=== PATIENT | male | born 1980 | race Caucasian/White ===

== ENCOUNTER 2016-09-29 22:40 | Inpatient (IN) | payer SELFPAY ==
[~2016-09-29] VITALS: Ht 172.7 cm; Wt 81.4 kg
[~2016-09-29 22:40] MED LIST: METH4TAB27 PO
--- OUTSIDE RECORDS SUMMARY | 2016-09-29 22:45 | XMS REPORT | Continuity of Care Document ---
Author Author [facility] Address Unknown Phone Unavailable Support Name Relationship Address Phone MILES WARE MD Caregiver [address] [place] [address] Insurance Providers Payer Name Policy Number Subscriber Name Relationship Self Pay Mary Ferrer 18 Self / Same As Patient Advance Directives Directive Response Recorded Date/Time Advanced Directives No 04/27/16 3:04pm Chief Complaint and Reason for Visit Chief Complaint Skin Condition Reason for Visit [id number] Problems Active Problems Medical Problem Onset Date Status Poison kim Unknown Acute Medications Current Home Medications Medication Dose Units Route Directions Days/Qty Instructions Start Date Methylprednisolone 21 Tab/Pkt 21 Tab ORAL Daily 1 04/27/16 Social History Query Response Start Date Stop Date Smoking Status Unknown, if ever smoked Hospital Discharge Instructions No hospital discharge instructions. Plan of Care Discharge Date 04/27/16 3:40pm Disposition 01 HOME OR SELF-CARE Condition at Discharge Stable Instructions/Education Provided Poison Kim (ED) Prescriptions See Medication Section Additional Instructions/Education Medrol dose pack - take as directed Benadryl over the counter - 50 mg every 6 hours as needed for itching. Generic is fine Return if symptoms worsen Some of your test results may not be complete prior to your leaving the Emergency Department. The Emergency Department is not authorized to give test results over the phone. Please contact the doctor's office listed in this packet of information for your final results. Follow up with your primary care physician or return to the Emergency Department for worsening or worrisome symptoms. * Emergency Department phone number: [phone], x [phone]* MEDICAL RECORD If you need copies of your X-rays, call [phone]. If you need copies of your medical record, including lab results, a signed authorization for release of records will be required. A telephone call for release of Health Information is not allowed. BILLING Billing can sometimes be confusing and frustrating. To help avoid confusion in the future, please take a moment to acquaint yourself with the billing parties for services. SERVICE BILLING DEMOCRAT Emergency Room Services [facility] Physician Services [facility] X[facility] Patients will receive bills for services from the appropriate provider. If you have any questions about your [facility] bill, our staff will be happy to assist you. Please call [phone], and ask for the billing department. THANK YOU for choosing [facility] as your emergency care provider! Care Plan and Goals ~~Discharge Care Plan~~ Problem: Rash/hives Goal: Decreased redness, itching, and blotches. Instructions: Take medication(s) as directed. Keep a log of medication times and dosages to avoid over or under dosage. Avoid triggers that cause your rash or hives. Functional Status No functional status results. Allergies, Adverse Reactions, Alerts Allergen Type Severity Reaction Status Last Updated Sulfa (Sulfonamide Antibiotics) Allergy Unknown Active 04/27/16 Immunizations No immunization records. Vital Signs Acute Vital Signs Vital Response Date/Time Temperature (Fahrenheit) 96.4 04/27/2016 3:34pm Pulse 75 bpm 04/27/2016 3:34pm Respirations 20 04/27/2016 3:34pm Height 5 ft 8 in Weight 185 lb Body Mass Index 28.0 kg/m^2 Results No known relevant diagnostic tests, laboratory data and/or discharge summary. Procedures No known history of procedures. Encounters Encounter Location Arrival/Admit Date Discharge/Depart Date Attending Provider Departed Emergency Room [facility] 04/27/16 2:58pm 04/27/16 3:40pm MILES WARE MD Recent Diagnosis
[2016-09-29 23:09] LABS: MEAN CORPUSCULAR HGB CONC 35.1 g/dL (31.0-37.0); MEAN CORPUSCULAR VOLUME 93 FL (80-100); PLATELET COUNT 178 10^3uL (150-450); WHITE BLOOD COUNT 7.14 10^3uL (4.0-11.0)
[2016-09-29 23:16] LABS: ALBUMIN 4.4 g/dL (3.4-5.0); ALKALINE PHOSPHATASE 68 U/L (38-126); ANION GAP 18.9 MEQ/L (3-15); BUN/CREATININE RATIO 16 (10-20); CALCULATED IONIZED CALCIUM 3.8 mg/dL (3.8-4.6); TOTAL PROTEIN 7.9 g/dL (6.4-8.5)
[2016-09-29 23:19] LABS: MEAN CORPUSCULAR HEMOGLOBIN 32.5 PG (26.0-34.0)
--- NOTE | 2016-09-29 23:22 | NUR ---
THIS RN SPOKE WITH POISON CONTROL AT THIS TIME REGARDING OVERDOSE. STATUS UPDATE PROVIDED. RECEIVED RECOMMENDATION TO RUN IV FLUIDS, REDRAW TYLENOL LEVEL AT 0000 AND MONITOR VITALS. RECOMMENDATIONS RELAYED TO DR. LEMUS AT THIS TIME.
--- NOTE | 2016-09-29 23:25 | NUR ---
RECEIVED CRITICAL VALUE FOR TYLENOL - 239. GIVEN TO DR. LEMUS AT THIS TIME.
--- NOTE | 2016-09-29 23:25 | NUR ---
fFriends here with patient, unable to get any information from patient d/t altered mental state. Patient's friends believes he has been depressed, has been treated for depression with Latuda but hasn't been taking this for a while. I asked the friend if they had any idea what might of caused him to do this, to want to harm himself? She stated, "The only thing I can think of is that he has been trying to get back to [place], friends are suppose to send him money for a ticket but still haven't.
[2016-09-29 23:56] LABS: SEGMENTED NEUTROPHILS % 39 % (51-67)
[2016-09-29 23:57] LABS: BAND NEUTROPHILS % 0 % (0-6); EOSINOPHILS % 4 % (0-4); LYMPHOCYTES # 3.6 #; MONOCYTES # 0.4 #; MONOCYTES % 6 % (3-11); RBC MORPH NORMAL (NORMAL); TOTAL CELLS COUNTED 100
[2016-09-30] VITALS (18 sets, daily range): BP systolic 113–159; BP diastolic 65–91
[2016-09-30] MEDS: ACETYLCYSTEINE PO ONE ×2 (00:53→01:14)
[2016-09-30] MEDS ORDERED: ACETYLCYSTEINE IV ONE ×5 (01:10→09:00)
[2016-09-30] MEDS ORDERED: D5W IV ONE ×6 (01:10→09:00)
[2016-09-30] MEDS ORDERED: ACETYLCYSTEINE PO ONE (01:10)
[2016-09-30] MEDS ORDERED: ONDANSETRON 2 MG/ML (Z0FRAN) 2 ML VIAL IV ONE (01:30)
[2016-09-30] MEDS ORDERED: POLYETHYLENE GLYCOL 17 GM (MIRALAX) PACKET PO PRN (02:15)
[2016-09-30] MEDS ORDERED: ONDANSETRON 2 MG/ML (Z0FRAN) 2 ML VIAL IV PRN (02:15)
--- NOTE | 2016-09-30 03:37 | History and Physical (E) ---
History & Physical Chief complaint: Tylenol overdose History of present illness: This is a 36-year-old male who apparently took 40, p.m. tablets at 8:00 tonight. It is not clear why he did this. The patient was brought to the emergency department by a friend Later. The friend is not available for questioning. In the ER the friend provided minimal information. Apparently the patient does have a history of posttraumatic stress disorder and methamphetamine use. The patient is evaluated in the emergency department and found to have a toxic Tylenol level. Patient was unwilling to take oral Mucomyst. At this time IV Mucomyst is begun. The patient is not cooperative. The patient does not have any insight in regards to what is occurring here. It is not clear at this is a suicide attempt or not. Further information will be gathered. For now the patient will be admitted to the ICU with suicide precautions. Past medical history: Posttraumatic stress disorder, depression Past surgical history: Unknown Medicines: None Allergies: Per medication reconciliation form Social history: Unknown, apparently uses methamphetamine, Family history: Unknown Review of systems: There is absolutely no information available except the ER obtained which is minimal. Review of systems is unobtainable at this time Physical examination: Vital signs afebrile pulse 110, blood pressure 150/90, respiratory 16, afebrile Well-developed well-nourished white male poor eye contact, responds to verbal commands at times, is minimally directable, Sclerae nonicteric, pupils are 4 mm bilaterally, extraocular muscles are intact , lungs are diminished, heart is regular rate and rhythm I hear no murmur, tachycardic, abdomen is flat, bowel sounds are present, nontender. Nursing personnel, extermination or edema, neurologically no focal deficits, mental status examination demonstrates the patient is altered, is poorly compliant with verbal stimuli, Lab: White count 7.1, hemoglobin 16.8, platelet count 278,000, monocytes 51%, sodium 150, potassium 4, serum bicarbonate 27, when necessary 18, creatinine 1.1 , glucose is 85, AST is 22, A LT is 29, plateau level 0, salicylate levels 0, initial Tylenol level was 239 at 3 hours ingestion, subsequent Tylenol level IV hours is 212, continues to be in toxic range, patient unable to provide a urine sample for urine drug screen Impression/plan 1. Tylenol overdose acute present on admission: Admitted to the ICU. IV Mucomyst. IV fluids. Repeat labs in the morning. 2. Benadryl overdose acute present on admission: Patient apparently took Tylenol PM, the PM component is Benadryl, patient is tachycardic, we will monitor QRS and QT intervals, if necessary will treat with magnesium, 3. Suicide attempt acute present on admission: Is not clear if the patient has been admitted to a psychiatric facility before. At this time patient doesnt suicide precautions. Social work consult was placed. 4. Methamphetamine abuse chronic present on admission: Await results of urine drug screen. Mental status was just methamphetamine use today. 5. DVT prophylaxis: SCD I SAW MR. Gonzalez in his room early this am.He did not communicate much and he voiced no complaints. He took 40 Tylenol pm and has been very drowsey the entire time he has been here. I finally got a uds and it demonstrated his abuse of methamphetamine. His VBG looked good and showed a 7.35 ph of the gas. He is still not awake enough for a pscch screener. lungs are CTA heart shows a RRR abdomen is soft and non tender;bs are active extremities show no c/c/edema Assessment: T ylenol overdose acute present on admission: Admitted to the ICU. IV Mucomyst. IV fluids. 2. Benadryl overdose acute present on admission: Patient apparently took Tylenol PM, the PM component is Benadryl, patient is tachycardic, we will monitor QRS and QT intervals, if necessary will treat with magnesium, 3. Suicide attempt acute present on admission: Is not clear if the patient has been admitted to a psychiatric facility before. At this time patient doesnt suicide precautions. Social work consult was placed. WE HAVE DESIGNATED THAT HE IS A DANGER TO HIMSELF and the police have a presence here now. 4. Methamphetamine abuse chronic present on admission: Mental status was just methamphetamine use today. 5. DVT prophylaxis: SCD Plan: :We plan to closely monitor him and we shall notify [place] of the Screening exam when he is more alert to participate. Allergies/Home Medications Allergies: Coded Allergies: Sulfa (Sulfonamide Antibiotics) (Verified Allergy, Unknown, 04/27/16) Reported Home Medications No Active Prescriptions or Reported Meds Copies to: End of Report . SANDIP DAVIS MD Sep 30, 2016 03:36 LYNN TYLER DO Sep 30, 2016 13:53
--- NOTE | 2016-09-30 04:18 | NUR ---
0305: PATIENT ARRIVED TO ROOM 342 AT THIS TIME VIA WHEELCHAIR AND ACCOMPANIED BY 3 RNS. PATIENT ABLE TO TRANSFER SELF FROM WHEELCHAIR TO BED IN ROOM. BEDSIDE MONITORING INITIATED, VITALS OBTAINED AND ASSESSMENT COMPLETED. 0311: DR. DAVIS NOTIFIED THAT PATIENT READY FOR ADMISSION. 0316: DR. DAVIS ASSESSING PATIENT THROUGH TELEMEDICINE. 0341: DR. DAVIS TELEPHONED THIS RN TO DISCUSS MYCOMIST DOSING - RECEIVED AND READ BACK ORDER FOR THE NEXT TWO INFUSIONS. PLACED IN [facility]. WILL ADMINISTER ORDERED WHEN MEDICATION AVAILABLE FROM PHARMACY. AT THIS TIME, PATIENT REMAINS IMPULSIVE. IS EASILY REDIRECTED AT THIS TIME AND WILL FOLLOW SIMPLE COMMANDS. HE REMAINS NAUSEOUS - HAS VOMITED X2 - <50ML EACH. IS CURRENTLY, RESTING IN BED. WILL CONTINUE TO MONITOR AND ASSESS NEEDED.
[2016-09-30] MEDS ORDERED: NS FLUSH 3 ML PRN IV (05:00)
[2016-09-30 06:10] LABS: BASOPHILS % (AUTO) 0 % (0-2); EOSINOPHILS % (AUTO) 1 % (0-4); MEAN CORPUSCULAR HGB CONC 34.4 g/dL (31.0-37.0); MEAN CORPUSCULAR VOLUME 93 FL (80-100); MEAN PLATELET VOLUME 10.5 FL (6.0-9.5); MONOCYTES # (AUTO) 0.4 X10^3; MONOCYTES % (AUTO) 7 % (3-11); NEUTROPHILS # (AUTO) 4.7 X10^3; NEUTROPHILS % (AUTO) 76 % (51-67); PLATELET COUNT 156 10^3uL (150-450); WHITE BLOOD COUNT 6.24 10^3uL (4.0-11.0)
[2016-09-30] MEDS: PANTOPRAZOLE 40 MG (PROTONIX) TAB PO SCH (07:00)
[2016-09-30 07:02] LABS: ALBUMIN 3.6 g/dL (3.4-5.0); ANION GAP 18.2 MEQ/L (3-15); CALCULATED IONIZED CALCIUM 4.1 mg/dL (3.8-4.6); TOTAL PROTEIN 6.6 g/dL (6.4-8.5)
--- NOTE | 2016-09-30 09:40 | NUR ---
Pt awake at present and able to void. Specimen collected and sent to lab. Pt does not remember last night. Does not know what town he is in. Assessment completed on pt. Pt continues to have a blank stare.
--- NOTE | 2016-09-30 10:00 | NUR ---
Doctor ordered PC on pt due to overdose and possible suicide attempt. Pt resting in bed with eyes closed resp even.
--- NOTE | 2016-09-30 10:00 | NUR ---
Tylenol level 34. Will continue the mucomyst IV.
[2016-09-30 10:21] LABS: MAGNESIUM* 1.9 mg/dL (1.6-2.3)
--- NOTE | 2016-09-30 10:24 | NUR ---
MED REC COMPLETED-No current medications listed from Ext Med History application, [facility] and patient unable to recall any medication information at this time.
[2016-09-30 10:37] LABS: BILIRUBIN,URINE Negative (Negative); GLUCOSE, URINE (UA) Negative (Negative); LEUKOCYTE ESTERASE ,URINE Negative (Negative); UROBILINOGEN,URINE 0.2 mg/dL (0.2-1.0)
--- NOTE | 2016-09-30 10:40 | NUR ---
Poison Control called and given information about the QRS and QT, requested to have EKG done to make sure of the QRS number. Ask that after the third bag of mucomyst was completed that lab test be done (CMP and acteminophan). If the aceteminophan is not under 0.10 give another bag of mucomist. If the QRS is over 0.10 on the EKG, bicarb bolus needs to be given.
[2016-09-30 10:48] LABS: AMPHETAMINE SCREEN, URINE Positive (Negative); CANNABINOID SCREEN, URINE Negative (Negative); CLARITY,URINE Slightly Cloudy; COLOR,URINE Yellow; METHAMPHETAMINE SCREEN URINE S POSITIVE (NEGATIVE); OPIATE SCREEN URINE Negative (Negative); PROPOXYPHENE STAT NEGATIVE (NEGATIVE)
--- NOTE | 2016-09-30 11:04 | NUR ---
RT present to do stat EKG.
--- NOTE | 2016-09-30 13:32 | NUR ---
Pt refused to have ABG's performed, do ordered VBG's instead. Troponin level done on blood in lab. Pt refused lunch. Pt has responded to conversation with one or two word sentences. Not interacting with staff. Monitor remains on showing SR, HR 60-70's. Pt has been compliant with most request but refused the ABG's. Will continue to monitor.
--- NOTE | 2016-09-30 14:45 | NUR ---
Pt brother from [place], [place] Gonzalez called to inquire about pt condition. Received permission to talk with brother from pt. This information obtained from brother: Pt in [place] for 4 years, brothers were at young age and placed in different foster homes. Brother has not seen pt for some time. [facility] to 1 06/25 for manufacturing of meth. Pt has an ex and 2 children in [place]. Brother phone # [phone]. Sibling does not know of any medical conditions pt may have. When pt was asked about family, he did say that he had 2 children a boy and a girl ages 13 and 11. Pt denies needs at present will continue to monitor.
[2016-09-30] MEDS: NS FLUSH 10 ML PRN IV (17:38)
[2016-09-30] MEDS: NS FLUSH 3 ML DAILY IV SCH (20:41)
[2016-09-30 23:17] LABS: ALKALINE PHOSPHATASE 44 U/L (38-126); ANION GAP 13.9 MEQ/L (3-15); BUN/CREATININE RATIO 12 (10-20); TOTAL PROTEIN 5.8 g/dL (6.4-8.5)
--- NOTE | 2016-09-30 23:35 | NUR ---
DISCUSSED WITH DR. DAVIS THE MOST RECENT TYLENOL LEVEL. IT IS NOW BELOW 10. HE AGREED WITH RECOMMENDATION TO DISCONTINUE MUCOMYST. WILL CONTINUE TO MONITOR AND ASSESS NEEDED.
--- NOTE | 2016-09-30 23:40 | NUR ---
THIS RN SPOKE WITH POISON CONTROL. MOST RECENT LABS AND VITALS PROVIDED UPDATE. POISON CONTROL STATES THAT PATIENT IS NOW MEDICALLY STABLE AND CAN PROCEED TO NEXT STEP OF CARE PLAN TOMORROW. WILL PASS INFORMATION ALONG TO PHYSICIAN. WILL CONTINUE TO MONITOR AND ASSESS NEEDED.
[2016-10-01] MEDS: PANTOPRAZOLE 40 MG (PROTONIX) TAB PO SCH (07:00)
[2016-10-01 08:00] VITALS: BP 135/78
[2016-10-01 08:11] VITALS: BP 135/78
--- NOTE | 2016-10-01 08:50 | NUR ---
NUTRITION ASSESSMENT Level 1 Patient: Andreas Gonzalez Age/Sex: 36/M Date Screened: 10-01-16 Weight: 179#/81.4 kg Height: 68 inches Primary Diagnosis: Tylenol overdose Diet Order: regular Relevant labs: N/A Food allergies: N Nutrition Assessment Criteria Age over 80: N Body Mass Index (BMI) under 19: N Admission Screening Indicates Risk? N Moderate/High Risk Diagnosis: N TPN or PPN: N NPO or clear liquid diet: N Serum Glucose <70 or >180: N/A Hgb A1c >6.7: N/A Total: 0 points Risk Screen: _X_ Patient at low nutritional risk based on available data; reevaluate in 5-7 days __ Patient at moderate nutritional risk based on available data; reevaluate in 3-5 days __ Patient at high nutritional risk; complete Nutrition Assessment within 48 hours of admission. Comments: Last documented weight was 185# in 2015. He is eating 0-50%. Pt. is currently on suicide precautions; [place] consult ordered.
[2016-10-01] MEDS: NS FLUSH 3 ML DAILY IV SCH ×2 (09:00→15:55)
--- NOTE | 2016-10-01 10:11 | Progress Note (E) ---
Progress Note SUBJECTIVE Admitted 09/30 after taking 40 Tylenol PM tablets, 09/29 at 1999. In ED 09/30 at 00:12, acetaminophen level was already 212, well-above the treatment line on the [facility] nomogram, so N-acetylcysteine was given per protocol. In evening 09/30 at 22:54, acetaminophen level was undetectable so N- acetylcysteine was stopped. AST and ALT remained normal or low. Other labs stable. UDS was positive for methamphetamine. EKG on admit as noted below with slow R-wave progression but no acute ST/T wave changes. Mildly prolonged QTc at .470. On exam, resting in bed. Stirs to exam. Mildly groggy but oriented x 4. Denies at this time that he was attempting suicide. States he took all those pills because he wanted to sleep. Does not volunteer further details. Does not know how he got to the hospital. (Per ER note, he was brought in by friend because he was elated, had been hallucinating, and acting paranoid.) Patient says he lives in [place] but has been here visiting a friend. Patient says he is supposed to be back in [place] today. Regarding prior psych history, admits to inpatient psych hospitalization at [facility] about 2 years ago for suicide attempt via cutting. He says he was there for 4 days. OBJECTIVE Vital Signs Date Time Temp Pulse Resp B/P Pulse Ox O2 Delivery O2 Flow Rate FiO2 10/01/16 09:10 70 10/01/16 08:11 11 135/78 Room air 10/01/16 04:00 97.1 09/30/16 16:00 98 I & O 09/30/16 10/01/16 Cumulative From/Thru 19:00 07:00 09/29/16 22:52 - 10/01/16 06:06 Intake Total 3051 ml 2328 ml 5822 ml Output Total 775 ml 2175 ml 2950 ml Balance 2276 ml 153 ml 2872 ml GEN: Groggy but stirs to exam and oriented x 4. HEENT: EOMI, clear sclerae, no nystagmus. Somewhat dry oral mucosa. CV: Regular without murmur. PULM: CTA B with no R/R/W. ABD: Soft, non-tender, active bowel sounds. EXTR: No edema. Warm, dry, well-perfused. INTEG: Tattoos noted. Dry skin. NEURO: Groggy but no apparent focal motor neuro deficit. PSYCH: Appearance: Mildly groggy, groomed, dressed in hospital gown. Mood: "Just tired." Affect: Flat Eye contact: Poor Speech: Quiet, speaks in short sentences, but speech is clear, coherent, not pressured. TC: Denies SI at this time. Denies attempt at suicide with overdose. Denies HI, AH, VH, and paranoia. TP: Linear, coherent at this time. Insight: Limited Judgement: Poor Lab-Past 14 Days, 35 Results 09/29/16 23:00: Absolute Band Neutrophils 0.0, Acetaminophen Level 239.0*H, Alanine Aminotransferase (ALT/SGPT) 29L, Albumin 4.4, Albumin/Globulin Ratio 1.257, Alkaline Phosphatase 68, Anion Gap 18.9H, Aspartate Amino Transf (AST/SGOT) 22, BUN/Creatinine Ratio 16, Band Neutrophils % 0, Basophils # (Manual) 0.0, Basophils % (Manual) 0, Blood Morphology Comment Normal, Blood Urea Nitrogen 18 , Calcium Level 9.2, Calcium/Ionized Calcium Ratio 3.8, Calculated Osmolality 290, Carbon Dioxide Level 27, Chloride Level 108, Creatinine 1.11, Differential Total Cells Counted 100, Eosinophils # 0.3, Eosinophils % (Manual) 4, Estimat Glomerular Filtration Rate 90.2, Estimated GFR (Non- 74.5, Glucose Level 85, Hematocrit 46.50, Hemoglobin 16.3, Lymphocytes # 3.6, Lymphocytes % (Manual) 51H, Mean Corpuscular Hemoglobin 32.5, Mean Corpuscular Hemoglobin Concent 35.1, Mean Corpuscular Volume 93, Mean Platelet Volume 10.0H , Metamyelocytes % 0, Monocytes # 0.4, Monocytes % (Manual) 6, Neutrophils # 2.8 , Platelet Count 178, Potassium Level 4.0, Red Blood Count 5.01, Red Cell Distribution Width 12.6, Salicylates Level < 1.0L, Segmented Neutrophils % 39L, Serum Alcohol < 10.0L, Sodium Level 150, Total Bilirubin 0.8, Total Protein 7.9 , White Blood Count 7.14 09/30/16 00:12: Acetaminophen Level 212.0*H 09/30/16 05:10: Alanine Aminotransferase (ALT/SGPT) 28L, Albumin 3.6, Albumin/Globulin Ratio 1.200, Alkaline Phosphatase 45, Anion Gap 18.2H, Aspartate Amino Transf (AST/ SGOT) 15, BUN/Creatinine Ratio 16, Blood Urea Nitrogen 15, Calcium Level 8.9, Calcium/Ionized Calcium Ratio 4.1, Calculated Osmolality 281, Carbon Dioxide Level 20L, Chloride Level 111H, Creatinine 0.95, Estimat Glomerular Filtration Rate 107.9, Estimated GFR (Non- 89.2, Glucose Level 105#, Hematocrit 42.70, Hemoglobin 14.7, Mean Corpuscular Hemoglobin 32.0, Mean Corpuscular Hemoglobin Concent 34.4, Mean Corpuscular Volume 93, Mean Platelet Volume 10.5H, Platelet Count 156, Potassium Level 4.3, Red Blood Count 4.60, Red Cell Distribution Width 12.7, Sodium Level 145, Total Bilirubin 0.9, Total Protein 6.6, White Blood Count 6.24, Basophils # (Auto) 0.0, Basophils (%) (Auto ) 0, Eosinophils # (Auto) 0.0, Eosinophils (%) (Auto) 1, Lymphocytes # (Auto) 1.0, Lymphocytes (%) (Auto) 17L, Monocytes # (Auto) 0.4, Monocytes (%) (Auto) 7 , Neutrophils # (Auto) 4.7, Neutrophils (%) (Auto) 76H 09/30/16 05:15: Acetaminophen Level 90.0*H 09/30/16 09:40: Acetaminophen Level 34.0*H, Magnesium Level 1.9, Troponin I < 0.012, Ur Tricyclic Antidepressants Screen Negative, Urine Amphetamines Screen PositiveH, Urine Barbiturates Screen Negative, Urine Benzodiazepines Screen Negative, Urine Bilirubin Negative, Urine Blood Negative, Urine Cannabinoids Screen Negative, Urine Clarity Slightly cloudy, Urine Cocaine Screen Negative, Urine Collection Type Clean catch, Urine Color Yellow, Urine Glucose (UA) Negative, Urine Ketones 2+H, Urine Leukocyte Esterase Negative, Urine Methadone Screen Negative, Urine Methamphetamines Screen PositiveH, Urine Nitrite Negative, Urine Opiates Screen Negative, Urine Oxycodone Screen Negative, Urine Phencyclidine Screen Negative, Urine Propoxyphene Screen Negative, Urine Protein Negative, Urine Specific [place] 1.025, Urine Urobilinogen 0.2, Urine pH 6.0 09/30/16 12:48: Bedside Venous Blood Total CO2 24, Blood Gas Puncture Site manual winder, Mixed Venous Blood PO2/FiO2 Ratio 0.2, Venous Blood Base Excess -3.0L, Venous Blood HCO3 22.6 , Venous Blood O2 Saturation (Calc) 88H, Venous Blood pCO2 at Patient Temp 41, Venous Blood pH 7.35, Venous Blood pO2 at Patient Temp 57H 09/30/16 22:54: Acetaminophen Level < 10.0L, Alanine Aminotransferase (ALT/SGPT) 24L, Albumin 3.0L, Albumin/Globulin Ratio 1.071L, Alkaline Phosphatase 44, Anion Gap 13.9, Aspartate Amino Transf (AST/SGOT) 14L, BUN/Creatinine Ratio 12, Blood Urea Nitrogen 11, Calcium Level 8.2L, Calcium/Ionized Calcium Ratio 4.0, Calculated Osmolality 270L, Carbon Dioxide Level 23, Chloride Level 107, Creatinine 0.92, Estimat Glomerular Filtration Rate 112.0, Estimated GFR (Non- 92.6, Glucose Level 108, Potassium Level 3.8, Sodium Level 140, Total Bilirubin 1.1H, Total Protein 5.8L EKG 09/30 NSR, slow R-wave progression. QTc 0.470. TELE 10/01 SR with QTc = 0.396 IMAGING: None ASSESSMENT Andreas Gonzalez is a 36 year old male admitted from ED 09/30 with suicide attempt with ingestion of acetaminophen PM. He did have a toxic acetaminophen on admit, peak 212 approximately 4 hours after ingestion. He was treated with IV N- acetylcysteine. He has other problems including PTSD, depression, and methamphetamine abuse. PLAN * Suicide Attempt, Depression: PTSD: Ingested 40 Tylenol PM capsules. Treated as discussed below. Close observation in ICU. Medically stabilized. Ready for psychiatric evaluation. Likely needs inpatient placement. Awaiting [place] consultation. * Acetaminophen Overdose, Intentional: Poison control was notified. Potential max ingestion 40 Tylenol PM tablets x 500 mg/tablet = 20,000 mg / 81.4 kg = 245 mg/kg. Peak acetaminophen level was 212 approximately 4 hours after ingestion. Did get N-acetylcysteine per protocol until acetaminophen level dropped to < 10.00 approximately 26 hours after initial ingestion. There was no rise in transaminases. Educated patient on findings, plan of care. * Diphenhydramine Overdose, Intentional: Potential max ingestion 40 Tylenol PM tablets x 25 mg = 1000 mg. Supportive care. Monitor for adverse effects including psychosis, tachycardia, urinary retention, among others. * Methamphetamine abuse: UDS was positive on admit. Supportive care. Layout Operator cessation. * QTc Prolongation: Resolved. Mild on admit with max 0.470 on admit EKG, improved on tele to 0.396 after 24 hours. Observe. * F/E/N: General diet. Stopped IVF 10/01. * Prophylaxis: Ambulate * Code Status: Full * Dispo: Inpatient from admit because of acetaminophen toxicity. Medically stable. Likely needs inpatient psych. Awaiting psych eval/screen. Try to obtain records from [facility] hospitalization in [place]. MAY MCKNIGHT MD Oct 01, 2016 09:38
--- NOTE | 2016-10-01 12:20 | NUR ---
Kristopher Lunsford View screener, completing an evaluation with Pt. via Ipad Zoom application. Pt. became upset when the screener talked about Pt. going to [facility] and then refused to talk to the screener any further. Isatu has completed an involuntary admit to [facility]. Once Pt. has been accepted Isatu will notify JOSIANE and a doc to doc and a nurse to nurse will need to be completed. Isatu has contact information for our nurse and doctor to pass onto [facility].
[2016-10-01 15:33] VITALS: BP 128/77
[2016-10-01] MEDS ORDERED: LORazepam 2 MG/ML (ATIVAN) 1 ML VIAL IV PRN (15:40)
[2016-10-01] MEDS ORDERED: LORazepam 1 MG (ATIVAN) TABLET PO PRN (15:40)
[2016-10-01] MEDS: NS FLUSH 10 ML PRN IV (15:56)
--- NOTE | 2016-10-01 16:29 | Discharge Summary (E) ---
Discharge Summary (E) Admit Date/Time Sep 30, 2016 at 02:31 Discharge Date/Time Oct 01, 2016 Admitting Provider Gen Ignacio MD Primary Care Provider None Attending Provider Gen Ignacio MD Consulting Provider JAGJIT HAMMOND-LEAWOOD History and Present Illness Andreas Gonzalez is a 36 year old male admitted from ED 09/30 with suicide attempt with ingestion of acetaminophen PM. He did have a toxic acetaminophen on admit, peak 212 approximately 4 hours after ingestion. He was treated with IV N- acetylcysteine. He has other problems including PTSD, depression, and methamphetamine abuse. He improved with therapies as outlined. Out of concern for this suicide attempt and risk of further self harm, inpatient psychiatric screen was performed by Jagjit Hammond and inpatient placement was recommended. Patient did not voluntarily agree to admission, so procedure was followed for involuntary placement. He was resigned to this and did not resist transfer otherwise. Call was placed to [facility] and case with discussed with Dr. Majano who accepted patient for transfer. He was sent by [facility]. Hospital Course and Treatment * Suicide Attempt, Depression: PTSD: Ingested 40 Tylenol PM capsules. Treated as discussed below. Close observation in ICU. Medically stabilized. Recommended inpatient psych placement. He was not combative but would not consent to voluntary admission. Screened through Jagjit Hammond and accepted for involuntary admission to Dr. Melecio Shelley accepting. * Acetaminophen Overdose, Intentional: Poison control was notified. Potential max ingestion 40 Tylenol PM tablets x 500 mg/tablet = 20,000 mg / 81.4 kg = 245 mg/kg. Peak acetaminophen level was 212 approximately 4 hours after ingestion. Did get N-acetylcysteine per protocol until acetaminophen level dropped to < 10.00 approximately 26 hours after initial ingestion. There was no rise in transaminases. Educated patient on findings, plan of care. * Diphenhydramine Overdose, Intentional: Potential max ingestion 40 Tylenol PM tablets x 25 mg = 1000 mg. Supportive care. Monitor for adverse effects including psychosis, tachycardia, urinary retention, among others. * Methamphetamine abuse: UDS was positive on admit. Supportive care. Sustainability Officer cessation. * Anxiety: Multifactorial. Could be underlying mood disorder but could also be effect of methamphetamine, diphenhydramine. Lorazepam for symptoms PRN. * QTc Prolongation: Resolved. Mild on admit with max 0.470 on admit EKG, improved on tele to 0.396 after 24 hours. Observe. * F/E/N: General diet. Stopped IVF 10/01. * Prophylaxis: Ambulate * Code Status: Full * Dispo: Inpatient from admit because of acetaminophen toxicity. Medically stable. Transferred via EMS to [facility] for further psychiatric care. Discharge Physicial Exam General Vital Signs Date Time Temp Pulse Resp B/P Pulse Ox O2 Delivery O2 Flow Rate FiO2 10/01/16 15:33 97.2 71 14 128/77 Room air 09/30/16 16:00 98 GEN: Groggy but stirs to exam and oriented x 4. HEENT: EOMI, clear sclerae, no nystagmus. Somewhat dry oral mucosa. CV: Regular without murmur. PULM: CTA B with no R/R/W. ABD: Soft, non-tender, active bowel sounds. EXTR: No edema. Warm, dry, well-perfused. INTEG: Tattoos noted. Dry skin. NEURO: Groggy but no apparent focal motor neuro deficit. PSYCH: Appearance: Mildly groggy, groomed, dressed in hospital gown. Mood: "Just tired." Affect: Flat Eye contact: Poor Speech: Quiet, speaks in short sentences, but speech is clear, coherent, not pressured. TC: Denies SI at this time. Denies attempt at suicide with overdose. Denies HI, AH, VH, and paranoia. TP: Linear, coherent at this time. Insight: Limited Judgement: Poor Laboratory/Radiology Data Lab-Past 14 Days, 35 Results 09/29/16 23:00: Absolute Band Neutrophils 0.0, Acetaminophen Level 239.0*H, Alanine Aminotransferase (ALT/SGPT) 29L, Albumin 4.4, Albumin/Globulin Ratio 1.257, Alkaline Phosphatase 68, Anion Gap 18.9H, Aspartate Amino Transf (AST/SGOT) 22, BUN/Creatinine Ratio 16, Band Neutrophils % 0, Basophils # (Manual) 0.0, Basophils % (Manual) 0, Blood Morphology Comment Normal, Blood Urea Nitrogen 18 , Calcium Level 9.2, Calcium/Ionized Calcium Ratio 3.8, Calculated Osmolality 290, Carbon Dioxide Level 27, Chloride Level 108, Creatinine 1.11, Differential Total Cells Counted 100, Eosinophils # 0.3, Eosinophils % (Manual) 4, Estimat Glomerular Filtration Rate 90.2, Estimated GFR (Non- 74.5, Glucose Level 85, Hematocrit 46.50, Hemoglobin 16.3, Lymphocytes # 3.6, Lymphocytes % (Manual) 51H, Mean Corpuscular Hemoglobin 32.5, Mean Corpuscular Hemoglobin Concent 35.1, Mean Corpuscular Volume 93, Mean Platelet Volume 10.0H , Metamyelocytes % 0, Monocytes # 0.4, Monocytes % (Manual) 6, Neutrophils # 2.8 , Platelet Count 178, Potassium Level 4.0, Red Blood Count 5.01, Red Cell Distribution Width 12.6, Salicylates Level < 1.0L, Segmented Neutrophils % 39L, Serum Alcohol < 10.0L, Sodium Level 150, Total Bilirubin 0.8, Total Protein 7.9 , White Blood Count 7.14 09/30/16 00:12: Acetaminophen Level 212.0*H 09/30/16 05:10: Alanine Aminotransferase (ALT/SGPT) 28L, Albumin 3.6, Albumin/Globulin Ratio 1.200, Alkaline Phosphatase 45, Anion Gap 18.2H, Aspartate Amino Transf (AST/ SGOT) 15, BUN/Creatinine Ratio 16, Blood Urea Nitrogen 15, Calcium Level 8.9, Calcium/Ionized Calcium Ratio 4.1, Calculated Osmolality 281, Carbon Dioxide Level 20L, Chloride Level 111H, Creatinine 0.95, Estimat Glomerular Filtration Rate 107.9, Estimated GFR (Non- 89.2, Glucose Level 105#, Hematocrit 42.70, Hemoglobin 14.7, Mean Corpuscular Hemoglobin 32.0, Mean Corpuscular Hemoglobin Concent 34.4, Mean Corpuscular Volume 93, Mean Platelet Volume 10.5H, Platelet Count 156, Potassium Level 4.3, Red Blood Count 4.60, Red Cell Distribution Width 12.7, Sodium Level 145, Total Bilirubin 0.9, Total Protein 6.6, White Blood Count 6.24, Basophils # (Auto) 0.0, Basophils (%) (Auto ) 0, Eosinophils # (Auto) 0.0, Eosinophils (%) (Auto) 1, Lymphocytes # (Auto) 1.0, Lymphocytes (%) (Auto) 17L, Monocytes # (Auto) 0.4, Monocytes (%) (Auto) 7 , Neutrophils # (Auto) 4.7, Neutrophils (%) (Auto) 76H 4/9/17 05:15: Acetaminophen Level 90.0*H 09/30/16 09:40: Acetaminophen Level 34.0*H, Magnesium Level 1.9, Troponin I < 0.012, Ur Tricyclic Antidepressants Screen Negative, Urine Amphetamines Screen PositiveH, Urine Barbiturates Screen Negative, Urine Benzodiazepines Screen Negative, Urine Bilirubin Negative, Urine Blood Negative, Urine Cannabinoids Screen Negative, Urine Clarity Slightly cloudy, Urine Cocaine Screen Negative, Urine Collection Type Clean catch, Urine Color Yellow, Urine Glucose (UA) Negative, Urine Ketones 2+H, Urine Leukocyte Esterase Negative, Urine Methadone Screen Negative, Urine Methamphetamines Screen PositiveH, Urine Nitrite Negative, Urine Opiates Screen Negative, Urine Oxycodone Screen Negative, Urine Phencyclidine Screen Negative, Urine Propoxyphene Screen Negative, Urine Protein Negative, Urine Specific Cushing 1.025, Urine Urobilinogen 0.2, Urine pH 6.0 09/30/16 12:48: Bedside Venous Blood Total CO2 24, Blood Gas Puncture Site pnp, Mixed Venous Blood PO2/FiO2 Ratio 0.2, Venous Blood Base Excess -3.0L, Venous Blood HCO3 22.6 , Venous Blood O2 Saturation (Calc) 88H, Venous Blood pCO2 at Patient Temp 41, Venous Blood pH 7.35, Venous Blood pO2 at Patient Temp 57H 09/30/16 22:54: Acetaminophen Level < 10.0L, Alanine Aminotransferase (ALT/SGPT) 24L, Albumin 3.0L, Albumin/Globulin Ratio 1.071L, Alkaline Phosphatase 44, Anion Gap 13.9, Aspartate Amino Transf (AST/SGOT) 14L, BUN/Creatinine Ratio 12, Blood Urea Nitrogen 11, Calcium Level 8.2L, Calcium/Ionized Calcium Ratio 4.0, Calculated Osmolality 270L, Carbon Dioxide Level 23, Chloride Level 107, Creatinine 0.92, Estimat Glomerular Filtration Rate 112.0, Estimated GFR (Non- 92.6, Glucose Level 108, Potassium Level 3.8, Sodium Level 140, Total Bilirubin 1.1H, Total Protein 5.8L EKG 09/30 NSR, slow R-wave progression. QTc 0.470. TELE 10/01 SR with QTc = 0.396 IMAGING: None Discharge Disposition Transferred via EMS to [facility]. Discharge Diet: Regular Discharge Medications Medication Profile: No Active Prescriptions or Reported Meds Follow up Comment Lorazepam proffered by EMS en route in case of anxiety symptoms. No prescriptions from this facility otherwise at discharge. Discharge Diagnosis See list above. Problems: Copies to: End of Report . MAY MCKNIGHT MD Oct 01, 2016 16:29
--- NOTE | 2016-10-01 16:47 | NUR ---
0800 The patient is up this AM for assessment and meal. VSS and WNL. He uses the urinal and returns to bed. 1000- Dr. Nicolas in to assess the patient. Andreas is cooperative and compliant. Orders are pending at this time and transfer process is underway. Andreas returns to bed without complaint. Skin is cool and dry and respirations are even and unlabored. 1200- PView to screen the patient over face time technology. At the conclusion of the screen the patient states " I am not willingly going to [place], police will have to escort me." Patient remains up for lunch before returning to bed. 1530- The patient wakes to use the restroom and tells this RN that he is feeling tense and anxious. VSS and WNL. Dr. Nicolas notified. 1600- 2 mg of Ativan IV is given. 1615- Report called to Evy FERNANDES at [facility]. 1640- EMS arrives for transport and the patient is up in room to change clothes. Darai FERNANDES [facility] contacts the patients brother Taran notifying him of the transfer. 1645- The patient leaves via care with EMS at this time. Care relinquished.
[2016-10-03] MEDS ORDERED: LORA2DIS4 IV (14:24)
== END 2016-10-01 16:45 | DRG 918 ==
LOC: ED 22:45 → UNDOADMIN 09-30 02:02 → ICU 09-30 02:02
PROVIDERS: ADMIT Emergency Medicine; ATTEND Emergency Medicine
DX: T39.1X2A Poisoning by 4-Aminophenol derivatives, intentional self-harm, initial encounter (principal); I10 Essential (primary) hypertension; F43.10 Post-traumatic stress disorder, unspecified; F32.9 Major depressive disorder, single episode, unspecified; F15.10 Other stimulant abuse, uncomplicated; T45.0X2A Poisoning by antiallergic and antiemetic drugs, intentional self-harm, initial encounter; Y92.9 Unspecified place or not applicable
CPT/HCPCS: 36415; 80053; 80307; 80320; 80329; 81003; 82803; 83735; 84484; 85007; 85025; 85027; 93005; 96361; 96365; 99283; 99284

== ENCOUNTER → 2016-10-01 | Outpatient (CLI) | payer SELFPAY | LOC: EMS 16:54 | DX: T39.1X2A Poisoning by 4-Aminophenol derivatives, intentional self-harm, initial encounter (principal); T45.0X2A Poisoning by antiallergic and antiemetic drugs, intentional self-harm, initial encounter ==